=== PATIENT | female | born 1990 | race Caucasian/White ===

== ENCOUNTER 2017-04-19 18:41 | Emergency (ER) | payer OTHER ==
[~2017-04-19] VITALS: Ht 170.2 cm; Wt 69.3 kg
[~2017-04-19 18:41] MED LIST: ALBUTEROL SULF8.5 GM IH; EXCEDRIN MIGRA1 EAC3 PO; IBUPROFEN800 MG PO; MUCINEX600 MG PO; NOHOMEMEDS; PREDNISONE50 MG PO; TESSALON PERLE100 MG PO; XANAX0.5 MG PO; ZITHROMAX Z-PA250 MG PO
[2017-04-19] MEDS ORDERED: MOTRIN600 MG PO (20:39)
[2017-04-19] MEDS ORDERED: KEFLEX500 MG PO (20:39)
[2017-04-19 20:47] VITALS: BP 145/82
== END 2017-04-19 21:00 | disposition home or self-care (01) ==
LOC: EME 18:41
DX: L03.115 Cellulitis of right lower limb (principal); S80.01XA Contusion of right knee, initial encounter; S80.211A Abrasion, right knee, initial encounter; W18.39XA Other fall on same level, initial encounter; Y93.K1 Activity, walking an animal; F17.200 Nicotine dependence, unspecified, uncomplicated; G43.909 Migraine, unspecified, not intractable, without status migrainosus
CPT/HCPCS: 73564; 99281; 99284

== ENCOUNTER 2017-07-05 08:57 | Inpatient (IN) | payer OTHER ==
[2017-07-05] VITALS (8 sets, daily range): BP systolic 136–158; BP diastolic 68–103
[~2017-07-05] VITALS: Ht 170.2 cm; Wt 72.7 kg
[~2017-07-05 08:57] MED LIST changes: +KEFLEX500 MG PO; +MOTRIN600 MG PO
[2017-07-05 10:35] LABS: HEMATOCRIT 36.9 % (36.0-46.0); MCHC 32.8 G/DL (30.0-36.0); MCV 79.2 FL (83-99); MEAN PLAT.VOLUME 11.4 uM^3 (9.5-12.4); PLATELET COUNT 192 K/uL (156-360); RBC DIS.WIDTH-CV 14.8 % (11.8-14.6); RBC DIS.WIDTH-SD 42.7 % (39-53); RED BLOOD COUNT 4.66 M/uL (3.80-5.20); WHITE BLOOD COUNT 7.2 K/uL (4.1-10.2)
[2017-07-05 10:53] LABS: AMPHETAMINES QUANT VALUE 0 NG/ML; BARBITUATES QUANT VALUE 0 NG/ML; BENZODIAZEPINES QUANT VALUE 0 NG/ML; BENZODIAZEPINES, URINE SCREEN Negative (200 ng/mL); MARIJUANA QUANT VALUE 0 NG/ML; OPIATES QUANTITATIVE VALUE 0 NG/ML; PHENCYCLIDINE QUANT VALUE 0 NG/ML
[2017-07-05 11:05] LABS: ALKALINE PHOSPHATASE 229 IU/L (3-129); ANION GAP 10 MEQ/L (2-14); CHLORIDE 107 MEQ/L (99-109); GFR ESTIMATE (CALCULATED) > 59 mL/min/; GLUCOSE 74 mg/dL (70-99); SAMPLE HEMOLYSIS CHECK 0; SAMPLE ICTERIC CHECK 0; SAMPLE LIPEMIA CHECK 0; SODIUM 137 MEQ/L (136-147); TOTAL BILIRUBIN 0.5 MG/DL (0.0-1.0); UREA NITROGEN (BUN) 8 mg/dL (9-23)
[2017-07-05 11:34] LABS: HPCA INDEX 0.13
[2017-07-05 11:37] LABS: ANTI-HEPATITIS A VIRUS (IGM) Nonreactive; HAV INDEX 0.12
[2017-07-05 11:38] LABS: ANTI-HEPATITIS B CORE (IGM) Nonreactive; HBC IgM INDEX 0.07
[2017-07-05 11:39] LABS: HIV INDEX 0.08; HIV-1/2 AB/AG COMBO Nonreactive
[2017-07-06 01:02] LABS: EOSINOPHIL (%) 2.1 % (0-5); EOSINOPHIL COUNT 0.2 K/uL (0-0.3); HEMATOCRIT 33.6 % (36.0-46.0); IMMATURE GRANULOCYTE (%) 0.6 % (0.0-0.7); LYMPHOCYTE COUNT 2.1 K/uL (1.0-2.8); MCH 24.5 PG (29.0-34.0); MCHC 31.3 G/DL (30.0-36.0); MCV 78.3 FL (83-99); MEAN PLAT.VOLUME 11.3 uM^3 (9.5-12.4); MONOCYTE COUNT 0.9 K/uL (0-0.8); NEUTROPHIL (%) 55.9 % (45-76); PLATELET COUNT 200 K/uL (156-360); RBC DIS.WIDTH-CV 14.6 % (11.8-14.6); RBC DIS.WIDTH-SD 41.4 % (39-53); RED BLOOD COUNT 4.29 M/uL (3.80-5.20); WHITE BLOOD COUNT 7.2 K/uL (4.1-10.2)
[2017-07-06 01:19] LABS: URIC ACID 3.7 mg/dL (3.1-9.2)
[2017-07-06 06:49] LABS: EOSINOPHIL (%) 2.4 % (0-5); EOSINOPHIL COUNT 0.2 K/uL (0-0.3); HEMATOCRIT 31.7 % (36.0-46.0); IMMATURE GRANULOCYTE (%) 0.3 % (0.0-0.7); INSTRUMENT ABS NEUTROPHIL CT 3.8 K/uL; LYMPHOCYTE COUNT 2.3 K/uL (1.0-2.8); MCH 26.1 PG (29.0-34.0); MCHC 32.8 G/DL (30.0-36.0); MCV 79.4 FL (83-99); MEAN PLAT.VOLUME 11.2 uM^3 (9.5-12.4); MONOCYTE (%) 10.5 % (3-12); MONOCYTE COUNT 0.7 K/uL (0-0.8); NEUTROPHIL COUNT 3.8 K/uL (1.8-6.4); PLATELET COUNT 193 K/uL (156-360); RBC DIS.WIDTH-CV 14.6 % (11.8-14.6); RBC DIS.WIDTH-SD 42.5 % (39-53); RED BLOOD COUNT 3.99 M/uL (3.80-5.20)
[2017-07-06 07:07] LABS: UR CREATININE CONCENTRATION 42.8 MG/DL
[2017-07-06 07:41] VITALS: BP 134/89
[2017-07-06 14:59] VITALS: BP 138/86
[2017-07-06 20:03] LABS: DRSB INTERNAL CONTROL PASS; PROBE CHECK PASS; SPECIMEN PROCESSING CONTROL PASS
[2017-07-06 23:02] VITALS: BP 136/89
[2017-07-07 08:16] VITALS: BP 138/89
[2017-07-07 09:37] LABS: TREPONEMA ANTIBODY NEGATIVE (NEGATIVE)
[2017-07-07 13:22] LABS: Varicella IgG <135.00 Index (>=165.00); Varicella IgM <=0.90 (<=0.90)
[2017-07-07 13:36] LABS: CHLAMYDIA TRACHOMATIS NEGATIVE; NEISSERIA GONORRHOEAE NEGATIVE
== END 2017-07-07 13:10 | disposition home or self-care (01) | DRG 775 ==
LOC: LDRP-OP 08:57 → 2WEST 08:58
PROVIDERS: Advanced Practice Midwife; Obstetrics & Gynecology
DX: O62.3 Precipitate labor (principal); O13.4 Gestational [pregnancy-induced] hypertension without significant proteinuria, complicating childbirth; Z3A.38 38 weeks gestation of pregnancy; Z37.0 Single live birth; O77.0 Labor and delivery complicated by meconium in amniotic fluid; Z87.891 Personal history of nicotine dependence
CPT/HCPCS: 80053; 80074; 80306 90; 82570; 83615; 84156; 84550; 85025; 85025 91; 85027; 86703; 86762; 86780; 86787 90; 86800 90; 86900; 86901; 87081; 87491; 87591; 87653; 88307

== ENCOUNTER 2017-09-27 16:40 | Emergency (ER) | payer OTHER ==
[~2017-09-27] VITALS: Ht 170.2 cm; Wt 59.8 kg
[2017-09-27] MEDS ORDERED: ALEVE220 MG PO (18:21)
[2017-09-27] MEDS ORDERED: TYLENOL REGULA325 MG PO (18:21)
[2017-09-27 19:28] VITALS: BP 110/68
== END 2017-09-27 19:28 | disposition home or self-care (01) ==
LOC: EME 16:40
DX: M25.552 Pain in left hip (principal); F17.200 Nicotine dependence, unspecified, uncomplicated; Z90.89 Acquired absence of other organs
CPT/HCPCS: 73502; 99281; 99284; J1885